=== PATIENT | female | born 1935 | race Caucasian/White ===

== ENCOUNTER 2021-02-11 19:02 | Emergency (ER) | payer MEDICARE, BC, SELFPAY ==
--- NOTE | 2021-02-11 19:16 | ED.UPPEXIN ---
HPI - Extremity Injury (Upper) General Chief Complaint: Extremity Injury, Upper Stated Complaint: left 4th finger injury Time Seen by Provider: 02/11/21 19:25 Source: patient and RN notes reviewed Mode of arrival: ambulatory Limitations: no limitations History of Present Illness HPI narrative: 85-year-old female presents with multiple complaints. Reports the fourth digit of her left hand is bruised and swollen. Reports yesterday she pinched the palmar aspect of the digit in a wheelchair. Reports that since then been bruised and swollen. She denies any tenderness, pain, pain with range of motion, limited range of motion. Reports she has been elevating and using ice. In a separate complaint reports earlier today she feels like she had a pill stuck in her throat, tried several things throughout the day to dislodge it. Reports on the way here it self resolved. She denies any trouble breathing, trouble swallowing. MD complaint: injury to: left and finger Related Data Home Medications Medication Instructions Recorded Confirmed acetaminophen-codeine tablet 02/11/21 diphenoxylate-atropine tablet 02/11/21 ferrous sulfate [FeroSul] mg 02/11/21 folic acid 02/11/21 hydrochlorothiazide 02/11/21 Allergies Allergy/AdvReac Type Severity Reaction Status Date / Time Horse Serum Proteins Allergy Mild Other Uncoded 02/11/21 19:10 Review of Systems Review of Systems: CONSTITUTIONAL: Denies malaise, chills, sweats, or fever. ENT: Denies trouble swallowing SKIN: Reports swollen, bruised fourth digit of left hand MUSCULOSKELETAL: Denies muscle skeletal pain, decreased range of motion or sensation or strength NEUROLOGIC: Denies numbness, weakness All systems reviewed & are unremarkable except as noted in HPI and below PMFSH Comments At time of signature, agree with nursing past medical, surgical, social and family history. There is no relevant family history pertinent to the presenting complaint Exam Narrative: GENERAL: Well-appearing, well-nourished, and in no acute distress. HEAD: Normocephalic EYES: PERRLA, conjunctivae clear NECK: Supple. CHEST: Speaks in full sentences. No respiratory distress. HEART: Regular rate and rhythm. Normal and equal peripheral pulses. EXTREMITIES: First digit of left hand has normal strength and sensation. 5/5 strength with digit flexion, extension. Range of motion normal. No clubbing, cyanosis noted. Mild edema, moderate ecchymosis noted to the entire digit. No tenderness. Skin intact. Normal digital cascade with flexion of fingers, median, ulnar and radial nerve intact. Normal sensation of each side of finger. Good capillary refill and radial pulse. Distal capillary refill less than 3 seconds. Patient is right/left hand dominant SKIN: Warn, dry, intact, pink. No rash NEURO: Alert and oriented x3. PSYCH: Normal mood and affect Course Course Emergency Course: Patient has a wedding ring set on the affected digit, rings easily movable, attempted removal of the ring with a string method, unable to remove. Patient refuses removal by cutting the rings. Capillary refill remains brisk. Anticipatory guidance given regarding monitoring the finger and seeking care if anything changes. Patient is aware of diagnosis, understands and agrees to treatment plan. Anticipatory guidance given. Patient agrees to follow-up as directed and is aware of reasons to seek care at the emergency department. Portions of this record may have been created with voice recognition software Vital Signs Vital signs: Reviewed. MDM - Extremity Injury (Upper) MDM Narrative Medical decision making narrative: Patients injury and/or pain is consistent with musculoskeletal etiology. No signs of neurological or vascular compromise on exam. Compartments and tissues are soft without signs of compartment syndrome. Pain is felt appropriate for further evaluation on an outpatient basis. Differential Diagnosis Differential diagnosis: Likely finger sprain, dis
[2021-02-11 19:22] VITALS: BP 150/99; PULSE 115; RESP 16; TEMP 36.7; O2SAT 98
[2021-02-11 19:28] VITALS: BP 150/99; PULSE 115; RESP 16; TEMP 36.7; O2SAT 98
== END 2021-02-11 19:45 | disposition home or self-care (01) ==
PROVIDERS: Emergency Provider Nurse Practitioner
DX: S60.042A Contusion of left ring finger without damage to nail, initial encounter (principal); W23.0XXA Caught, crushed, jammed, or pinched between moving objects, initial encounter; I10 Essential (primary) hypertension; M19.90 Unspecified osteoarthritis, unspecified site; Z96.60 Presence of unspecified orthopedic joint implant
CPT/HCPCS: 99212; G0463

== ENCOUNTER 2022-07-31 16:57 | Emergency (ER) | payer MEDICARE, BC, SELFPAY ==
[2022-07-31 17:16] VITALS: BP 145/125; PULSE 93; RESP 12; TEMP 37.5; O2SAT 100
--- NOTE | 2022-07-31 17:16 | ED.GENADULT ---
HPI - General Adult General Chief complaint: Extremity Problem,Nontraumatic Stated complaint: Right Knee Pain Time Seen by Provider: 07/31/22 17:16 Source: patient, RN notes reviewed and old records reviewed Mode of arrival: ambulatory Limitations: no limitations History of Present Illness HPI narrative: 86-year-old female presents to the [facility] with complaints of right knee pain. Patient states that she received cortisone injections from an orthopedist on Wednesday, 4 days ago. States that the pain in the anterior right knee continues. No trauma. No bruising, swelling, erythema noted. Patient is very arthritic. Related Data Home Medications Medication Instructions Recorded Confirmed acetaminophen 300 mg-codeine 60 mg tablet 02/11/21 tablet diphenoxylate-atropine 2.5 tablet 02/11/21 mg-0.025 mg tablet ferrous sulfate 325 mg (65 mg mg 02/11/21 iron) tablet (FeroSul) folic acid 1 mg tablet 02/11/21 hydrochlorothiazide 25 mg tablet 02/11/21 Allergies Allergy/AdvReac Type Severity Reaction Status Date / Time Horse Serum Proteins Allergy Mild Other Uncoded 07/31/22 17:20 Review of Systems Review of Systems: All systems reviewed & are unremarkable except as noted in HPI and below Constitutional: Constitutional: Reports no additional constitutional complaints Eyes: Eyes: Reports no additional eye complaints ENT: Reports system reviewed and no additional complaints, except as documented Cardiovascular: Cardiovascular: Reports no additional cardiovascular complaints, Denies chest pain and Denies dyspnea Respiratory: Respiratory: Reports no additional respiratory complaints, Denies chest congestion, Denies cough and Denies dyspnea Gastrointestinal: Gastrointestinal: Reports no additional gastrointestinal complaints, Denies abdominal pain, Denies nausea and Denies vomiting Musculoskeletal: Musculoskeletal: Reports as per HPI Integumentary/Breasts: Skin/Breast: Reports system reviewed and no additional complaints, except as docu Neurologic: Reports system reviewed and no additional complaints, except as documented Psychiatric: Psychiatric: Reports no additional psychiatric complaints Allergic/Immunologic: Allergic/Immunologic: Reports no additional allergic/immunologic complaints PMFSH Comments At the time of my signature, I reviewed and agree with the nursing past medical, surgical, social, and family history. There is no relevant family history pertinent to the patient complaint. Exam Const: General: cooperative, healthy appearing, comfortable, no acute distress, well developed, alert and well nourished Nutritional Appearance: well nourished Orientation/consciousness: patient oriented x3 Limitations: no limitations HENMT: Head: normal to inspection Ears: hearing grossly normal bilaterally and external ears normal Face/Nose/Sinus: Normal external nose present, Normal nares present, Normal nasal mucous membranes and turbinates present and normal facial exam Face and sinus: normal facial exam Eyes: General: appearance normal, both eyes and all related structures Alignment and Position: alignment normal Periorbital: periorbital findings normal Pupils: Equal, round and reactive pupils present EOM: EOMs intact bilaterally Neck: Neck: normal visual inspection, full ROM, no lymphadenopathy and no meningeal signs Chest: Chest palpation & inspection: normal inspection of the chest Resp: Effort & Inspection: normal respiratory effort and able to speak in complete sentences Auscultation: clear to auscultation bilaterally, no crackles, no rales, no rhonchi and no wheezes Cardio: Rate: regular rate Rhythm: regular rhythm Back/Spine/Pelvis: Cervical Spine: cervical ROM normal Thoracic/Lumbar Spine: No thoracic spinal tenderness Skin: General skin exam: normal color and no rashes or lesions noted Lesions: no lesions Rashes: no rashes Wounds: no wounds Neuro: General: patient oriented x3, ga
== END 2022-07-31 17:40 | disposition home or self-care (01) ==
PROVIDERS: Emergency Provider Nurse Practitioner; PCP Family Medicine
DX: M25.561 Pain in right knee (principal); I10 Essential (primary) hypertension
CPT/HCPCS: 99212; G0463

== ENCOUNTER 2022-12-23 18:49 | Emergency (ER) | payer MEDICARE, BC, SELFPAY ==
--- NOTE | ~2022-12-23 | XR_ITS ---
EXAMINATION: XR toe 3rd RT min 2V INDICATION: Right third toe pain TECHNIQUE: Three views of the right third toe are obtained. COMPARISON: None available FINDINGS: There is soft tissue swelling of the third toe. There appears to be a transverse fracture i n the distal aspect of the third proximal phalanx. There also appears to be fusion of the third dista l interphalangeal joint. The bones are osteopenic which limits the sensitivity for fracture however n o additional suspected fracture is seen. Moderate polyarticular osteoarthritis is noted. IMPRESSION: 1. Acute fracture of the distal aspect of the third proximal phalanx. Reviewed, dictated and finalized at location F.
[2022-12-23 18:58] VITALS: BP 143/93; PULSE 93; RESP 16; TEMP 37.2; O2SAT 98
--- NOTE | 2022-12-23 18:58 | ED.LOWEXIN ---
HPI - Extremity Injury (Lower) General Chief Complaint: Extremity Injury, Lower Stated Complaint: Right Foot Toe Pain Time Seen by Provider: 12/23/22 18:58 Source: patient Mode of arrival: ambulatory Limitations: no limitations History of Present Illness HPI Narrative: 87 yo F presents with pain and swelling to R 3rd toe. Stubbed toe yesterday at 4am on cane while getting up to go to bathroom. pt wants x-ray to check for fracture. Ambulatory with steady gait wearing tennis shoes. all systems reviewed and negative except as noted above. Related Data Home Medications Medication Instructions Recorded Confirmed acetaminophen 300 mg-codeine 60 mg See Rx Instructions .Route .COMPLEX 02/11/21 12/23/22 tablet diphenoxylate-atropine 2.5 1 tablet PO DAILY 02/11/21 12/23/22 mg-0.025 mg tablet ferrous sulfate 325 mg (65 mg 325 mg PO DAILY 02/11/21 12/23/22 iron) tablet (FeroSul) folic acid 1 mg tablet 1 mg PO DAILY 02/11/21 12/23/22 hydrochlorothiazide 25 mg tablet 25 mg PO DAILY 02/11/21 12/23/22 meloxicam 7.5 mg tablet 7.5 mg PO BID 12/23/22 12/23/22 Allergies Allergy/AdvReac Type Severity Reaction Status Date / Time Horse Serum Proteins Allergy Mild Other Uncoded 12/23/22 18:57 Review of Systems Review of Systems: CONSTITUTIONAL: Denies fever, chills, or sweats. EYES: Denies visual changes, redness, or discharge. ENT: Denies rhinorrhea, congestion, sore throat, or otalgia. CARDIOVASCULAR: Denies chest pain, palpitations, or edema. RESPIRATORY: Denies cough or dyspnea. GASTROINTESTINAL: Denies abdominal pain, nausea, vomiting, or diarrhea. GENITOURINARY: Denies dysuria or hematuria. SKIN: Denies rash or itching. MUSCULOSKELETAL: Reports Pain and swelling to right 3rd toe. NEUROLOGIC: Denies headache, numbness, or weakness. PSYCHIATRIC: Denies anxiety or depression. All other systems reviewed are negative, except as documented in HPI. PMFSH Comments At time of signature, agree with nursing past medical, surgical, social and family history. There is no relevant family history pertinent to the presenting complaint. Exam Narrative: GENERAL: This is a well-nourished, well-developed patient, in no apparent distress. HEAD: normocephalic, atraumatic. EYES: PERRL. Sclera clear/white. Vision is grossly intact. EARS: External ears normal NOSE: External nose normal NECK: Neck supple, non-tender without lymphadenopathy, masses or thyromegaly. CARDIOVASCULAR: Regular rate and rhythm without murmurs, gallops, or rubs. RESPIRATORY: Clear to auscultation. Breath sounds equal bilaterally. No wheezes, rales, or rhonchi. SKIN: warm, Dry, intact with no suspicious lesions or rash, good texture and turgor. NEURO: awake, alert, and oriented to person, place and time. There were no obvious focal neurologic abnormalities. EXTREMITIES: swelling, bruising to R 3rd toe. tenderness to proximal aspect on palpation. deformed due to degenerative changes. Course Course Level of Care: Express Care Visit Vital Signs Vital signs: review MDM - Extremity Injury (Lower) MDM Narrative Medical decision making narrative: Patient is aware of diagnosis, understands and agrees to treatment plan. Anticipatory guidance given. Patient agrees to follow-up as directed and is aware of reasons to seek care at the emergency department. Portions of this record may have been created with voice recognition software Discussed x-ray results with patient. Recommend Tylenol every 6-8 hours to treat pain. Imaging Data My impression: Agree with radiologist Radiologist's impression: Patient is aware of diagnosis, understands and agrees to treatment plan. Anticipatory guidance given. Patient agrees to follow-up as directed and is aware of reasons to seek care at the emergency department. Portions of this record may have been created with voice recognition software Discharge Plan Discharge Clinical Impression: Fracture of third to
[2022-12-23 19:01] VITALS: BP 143/93; PULSE 93; RESP 16; TEMP 37.2; O2SAT 98
== END 2022-12-23 19:40 | disposition home or self-care (01) ==
PROVIDERS: Emergency Provider Nurse Practitioner Family; PCP Family Medicine
DX: S92.501A Displaced unspecified fracture of right lesser toe(s), initial encounter for closed fracture (principal); Z79.899 Other long term (current) drug therapy; W22.8XXA Striking against or struck by other objects, initial encounter
CPT/HCPCS: 73660; 99213; G0463

== ENCOUNTER 2023-01-30 18:08 | Emergency (ER) | payer MEDICARE, BC, SELFPAY ==
--- NOTE | ~2023-01-30 | XR_ITS ---
EXAM: XR ribs LT 2V DATE: 01/30/2023 19:17 HISTORY: left low lateral rib pain s/p inury 2 days ago . COMPARISON: None available. FINDINGS: Severely decreased mineralization. Severe thoracolumbar scoliosis. Large hiatal hernia. Ra diographic detail of the ribs obscured by overlapping bowel and skin/arm artifact. No definite acute fracture. Angular deformity in the left lateral fourth rib. IMPRESSION: Limited examination. Possible angular deformity of the left lateral fourth rib may repres ent an new or acute fracture, correlate with tenderness. Otherwise no other acute osseous abnormalities detected.. Reviewed, dictated and finalized at location K. HAT POUNCING OPERATOR HAND IMPRESSION: Limited examination. Possible angular deformity of the left lateral fourth rib may represent an new or acute fracture, correlate with tenderness. Otherwise no other acute osseous abnormalities detected..
--- NOTE | 2023-01-30 18:20 | ED.GENADULT ---
HPI - General Adult General Chief complaint: Back Pain/Injury Stated complaint: left side pain Time Seen by Provider: 01/30/23 18:20 Source: patient Mode of arrival: ambulatory Limitations: no limitations History of Present Illness HPI narrative: 87-year-old female patient presents to the [facility] with complaints of left mid back pain. Patient states that she was at the eye doctor's office on this past week and with go sit down in the chair thinks she sat too hard and has been having pain to that area since then. Patient states she know she has been taking too much Tylenol and ibuprofen patient does admit to taking for Tylenol with codeine today. Patient denies any mid spine pain. Related Data Home Medications Medication Instructions Recorded Confirmed acetaminophen 300 mg-codeine 60 mg See Rx Instructions .Route .COMPLEX 02/11/21 12/23/22 tablet diphenoxylate-atropine 2.5 1 tablet PO DAILY 02/11/21 12/23/22 mg-0.025 mg tablet ferrous sulfate 325 mg (65 mg 325 mg PO DAILY 02/11/21 12/23/22 iron) tablet (FeroSul) folic acid 1 mg tablet 1 mg PO DAILY 02/11/21 12/23/22 hydrochlorothiazide 25 mg tablet 25 mg PO DAILY 02/11/21 12/23/22 meloxicam 7.5 mg tablet 7.5 mg PO BID 12/23/22 12/23/22 Allergies Allergy/AdvReac Type Severity Reaction Status Date / Time Horse Serum Proteins Allergy Mild Other Uncoded 01/30/23 18:11 Review of Systems Review of Systems: CONSTITUTIONAL: Denies fever, chills, or sweats. EYES: Denies visual changes, redness, or discharge. ENT: Denies rhinorrhea, congestion, sore throat, or otalgia. CARDIOVASCULAR: Denies chest pain, palpitations, or edema. RESPIRATORY: Denies cough or dyspnea. GASTROINTESTINAL: Denies abdominal pain, nausea, vomiting, or diarrhea. GENITOURINARY: Denies dysuria or hematuria. SKIN: Denies rash or itching. MUSCULOSKELETAL: Positive back pain, denies joint pain, or myalgia. NEUROLOGIC: Denies headache, numbness, or weakness. PSYCHIATRIC: Denies anxiety or depression. [facility] Past Medical History Medical History (Updated 01/30/23 @ 19:45 by KIM Kessler) Arthritis Cataracts, bilateral Surgical History Surgical History History of orthopedic surgery Left wrist History of tonsillectomy Comments At the time of my signature I agree with nursing past medical history, surgical, social, and family history. There is no relevant family history pertinent to the presenting complaint. Exam Narrative: GENERAL: Well-appearing, well-nourished, and in no acute distress. HEAD: Normocephalic, atraumatic. EYES: PERRLA and EOMI. ENT: Nares clear, no rhinorrhea or epistaxis. Mucous membranes moist. NECK: Supple. No lymphadenopathy CHEST: Clear to auscultation. No respiratory distress. HEART: Regular rate and rhythm. No murmur heard. Normal peripheral pulses. ABDOMEN: Soft, nontender, nondistended, normal active bowel sounds. BACK: Patient is able to ambulated without assistance. Pt is seated in a wheelchair in no obvouis distress. No surface trauma noted. muscle tenderness to Palpation to the left lateral area of the back. Patient appears to have scoliosis of the back a possible small muscle strains the left side. No step-offs or deformity noted to the cervical, thoracic or lumbar spine to firm Palpation at the midline. No CVA tenderness to percussion. No saddle anesthesia. ROM: able to stand erect. Normal flexion, extension, Lateral bending and rotation without limitation or complaint of pain. Patient complained of pain to the posterior rib area around ribs 4 and 5 EXTREMITIES: Normal range of motion. No edema. SKIN: Warm, dry, no rash. NEURO: No focal deficits. Alert and oriented x3. Course Course Level of Care: Express Care Visit Reevaluation(s) Reevaluation #1: Re-evaluated patient notified her that her x-ray shows possible left lateral rib fracture. Discussed with patient that she ca
[2023-01-30 18:21] VITALS: BP 138/93; PULSE 115; RESP 16; TEMP 36.9; O2SAT 98
== END 2023-01-30 19:55 | disposition home or self-care (01) ==
PROVIDERS: Emergency Provider Nurse Practitioner Family; PCP Family Medicine
DX: S22.32XA Fracture of one rib, left side, initial encounter for closed fracture (principal); X50.9XXA Other and unspecified overexertion or strenuous movements or postures, initial encounter; M19.90 Unspecified osteoarthritis, unspecified site; H26.9 Unspecified cataract
CPT/HCPCS: 71100; 99213; G0463

== ENCOUNTER 2023-04-15 17:21 | Emergency (ER) | payer MEDICARE, BC, SELFPAY ==
--- NOTE | ~2023-04-15 | XR_ITS ---
EXAMINATION: XR foot LT min 3V DATE: 04/15/2023 18:00 INDICATION: Left foot pain post injury TECHNIQUE: Dorsoplantar, two oblique and lateral views of the left foot were obtained. COMPARISON: None. FINDINGS: Diffuse osteopenia. Acute minimally displaced fracture at the necks of the left fourth and fifth meta tarsals. 20 degree lateral angulation of an old healed fracture of the distal diaphysis of the left t hird metatarsal. Bone alignment is otherwise normal. Polyarticular osteoarthritis, severe at the firs t metatarsophalangeal joint, moderate severity at the talonavicular, fifth metatarsophalangeal and fi rst interphalangeal joints and mild at the majority the remaining joints in the left foot. Small plan tar calcaneal spur. Dystrophic calcification in the soft tissues anterior to the distal tibia. IMPRESSION: 1. Minimally displaced acute fractures of the necks of the left fourth and fifth metatarsals. 2. Old healed fracture deformity at the third metatarsal diaphysis. 3. 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 Reviewed, dictated and finalized at location A. HANDLE ASSEMBLER IMPRESSION: 1. Minimally displaced acute fractures of the necks of the left fourth and fift h metatarsals. 2. Old healed fracture deformity at the third metatarsal diaphysis. 3. 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
--- NOTE | 2023-04-15 17:22 | ED.LOWEXIN ---
HPI - Extremity Injury (Lower) General Chief Complaint: Extremity Injury, Lower Stated Complaint: left foot injury Time Seen by Provider: 04/15/23 17:22 Source: patient Mode of arrival: ambulatory Limitations: no limitations History of Present Illness HPI Narrative: Patient is an 87-year-old female who presents with left lateral foot pain after turning and rolling foot outward. Patient states pain is 3/10 when walking. Patient is still able to wiggle toes and feel normally. Reports she has been using ice and taking her normal pain medicine. Patient is also been using Vic wrap. 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 Related Data Home Medications Medication Instructions Recorded Confirmed acetaminophen 300 mg-codeine 60 mg See Rx Instructions .Route .COMPLEX 02/11/21 04/15/23 tablet diphenoxylate-atropine 2.5 1 tablet PO DAILY 02/11/21 04/15/23 mg-0.025 mg tablet ferrous sulfate 325 mg (65 mg 325 mg PO DAILY 02/11/21 04/15/23 iron) tablet (FeroSul) folic acid 1 mg tablet 1 mg PO DAILY 02/11/21 04/15/23 hydrochlorothiazide 25 mg tablet 25 mg PO DAILY 02/11/21 04/15/23 meloxicam 7.5 mg tablet 7.5 mg PO BID 12/23/22 04/15/23 Allergies Allergy/AdvReac Type Severity Reaction Status Date / Time Horse Serum Proteins Allergy Mild Other Uncoded 04/15/23 17:49 Review of Systems Review of Systems: All systems reviewed & are unremarkable except as noted in HPI and below Constitutional: Constitutional: Denies body ache(s), Denies chills, Denies fatigue, Denies fever(s), Denies headache(s), Denies malaise and Denies weakness Eyes: Eyes: Denies blurry vision, Denies irritation and Denies loss of vision ENT: Denies otalgia, Denies headache(s), Denies nasal discharge, Denies sinus pain and Denies sore throat Cardiovascular: Cardiovascular: Denies chest pain, Denies irregular heart rhythm and Denies dyspnea Respiratory: Respiratory: Denies dyspnea Gastrointestinal: Gastrointestinal: Denies abdominal pain, Denies melena, Denies hematochezia, Denies diarrhea, Denies nausea and Denies vomiting Musculoskeletal: Musculoskeletal: Denies back pain, Denies myalgias and Reports arthralgias Integumentary/Breasts: Skin/Breast: Denies pruritus and Denies rash Neurologic: Denies headache(s), Denies loss of vision and Denies weakness Psychiatric: Psychiatric: Reports no additional psychiatric complaints Endocrine: Endocrine: Denies fatigue PMFSH Past Medical History Medical History Arthritis Cataracts, bilateral Surgical History Surgical History History of orthopedic surgery Left wrist History of tonsillectomy Comments At time of signature, agree with nursing past medical, surgical, social and family history. There is no relevant family history pertinent to the presenting complaint. Exam Const: General: cooperative, healthy appearing, comfortable, no acute distress and well nourished Nutritional Appearance: well nourished Orientation/consciousness: patient oriented x3 Limitations: no limitations HENMT: Head: normal to inspection, normocephalic and atraumatic Ears: hearing grossly normal bilaterally and external ears normal Face/Nose/Sinus: Normal external nose present, normal facial exam and face symmetric Face and sinus: normal facial exam and face symmetric Mouth: Yes lip normal Eyes: General: appearance normal, both eyes and all related structures Alignment and Position: alignment normal and position normal Periorbital: periorbital findings normal Eyelids: eyelids normal Pupils: Equal, round and reactive pupils present EOM: EOMs intact bilaterally Neck: Neck: normal visual inspection, full ROM and supple Chest: Chest palpation & inspection: normal inspection of the chest Resp: Effort & Inspection: normal respiratory effort and able to speak in complete sentences Auscultation: clear to
[2023-04-15 17:44] VITALS: BP 137/92; PULSE 100; RESP 16; TEMP 36.7; O2SAT 100
== END 2023-04-15 18:50 | disposition home or self-care (01) ==
PROVIDERS: Emergency Provider Nurse Practitioner Family; PCP Family Medicine
DX: S92.342A Displaced fracture of fourth metatarsal bone, left foot, initial encounter for closed fracture (principal); S92.352A Displaced fracture of fifth metatarsal bone, left foot, initial encounter for closed fracture; X50.9XXA Other and unspecified overexertion or strenuous movements or postures, initial encounter; M19.90 Unspecified osteoarthritis, unspecified site; H26.9 Unspecified cataract
CPT/HCPCS: 73630; 99214; G0463

== ENCOUNTER 2023-06-01 12:56 | Outpatient (CLI) | payer MEDICARE, BC, SELFPAY ==
--- NOTE | 2023-06-01 14:30 | NEURO_ITS ---
Impression: # Non-diabetic complains of numbness of right hand. # No Carpal Tunnel Syndrome or ulnar neuropathy. # Normal needle/EMG exam including proximal muscles. # Clinical correlation recommended,higher involvement needs to be ruled out. Nerve Conduction Studies Anti Sensory Summary Table Stim Site NR Peak (ms) P-T Amp (?V) Site1 Site2 Delta-P (ms) Dist (cm) Slim (m/s) Right Median Anti Sensory (2-3nd Digit) Wrist 3.3 5.2 Wrist 2-3nd Digit 3.3 14.0 42 Wrist 3.4 7.4 Wrist 2-3nd Digit 3.3 14.0 42 Right Radial Anti Sensory (Base 1st Digit) Wrist 2.6 18.3 Wrist Base 1st Digit 2.6 0.0 Right Ulnar Anti Sensory (5th Digit) Wrist 2.6 42.7 Wrist 5th Digit 2.6 14.0 54 Motor Summary Table Stim Site NR Onset (ms) O-P Amp (mV) Site1 Site2 Delta-0 (ms) Dist (cm) Slim (m/s) Right Median Motor (Abd Poll Brev) Wrist 3.3 1.5 Elbow Wrist 5.2 26.0 50 Elbow 8.5 1.9 Right Ulnar Motor (Abd Dig Minimi) Wrist 3.2 3.2 A Elbow Wrist 4.4 26.0 59 A Elbow 7.6 2.5 F Wave Studies NR F-Lat (ms) L-R F-Lat (ms) Right Median (Mrkrs) (Abd Poll Brev) 28.38 Right Ulnar (Mrkrs) (Abd Dig Min) 27.97 EMG Side Muscle Nerve Root Ins Act Fibs Amp Dur Recrt Comment Right 1stDorInt Ulnar C8-T1 Nml Nml Nml Nml Nml Right Ext Indicis Radial (Post Int) C7-8 Nml Nml Nml Nml Nml Right Ext Digitorum Radial (Post Int) C7-8 Nml Nml Nml Nml Nml Right BrachioRad Radial C5-6 Nml Nml Nml Nml Nml Right PronatorTeres Median C6-7 Nml Nml Nml Nml Nml Right Abd Poll Brev Median C8-T1 Nml Nml Nml Nml Nml Right ABD Dig Min Ulnar C8-T1 Nml Nml Nml Nml Nml Right Biceps Musculocut C5-6 Nml Nml Nml Nml Nml Right Triceps Radial C6-7-8 Nml Nml Nml Nml Nml Right Deltoid Axillary C5-6 Nml Nml Nml Nml Nml MTDD
== END 2023-06-01 12:57 | disposition home or self-care (01) ==
LOC: ANHNEURO 12:58
PROVIDERS: PCP Family Medicine; Visit Provider Physician Assistant Surgical
DX: G56.01 Carpal tunnel syndrome, right upper limb (principal)
CPT/HCPCS: 95886; 95909